=== PATIENT | female | born 1955 | race Caucasian/White ===

== ENCOUNTER 2016-09-28 10:26 | Emergency (ER) | payer BC ==
[2016-09-28 10:40] VITALS: TEMP 98.6
[2016-09-28] MEDS ORDERED: IOPAMIDOL (ISOVUE-300) 100 ML BTL ONE (11:49)
[2016-09-28] MEDS ORDERED: IBUPROFEN 600 MG TAB PO ONE ×2 (12:56→12:57)
--- NOTE | 2016-09-28 13:06 | EDPHY ---
H & P Time Seen by Provider: 09/28/16 11:18 HPI/ROS: CHIEF COMPLAINT: Head injury, bucked off a horse HISTORY OF PRESENT ILLNESS: 61-year-old female presents to the emergency department by private vehicle with her after she was bucked off of her horse earlier this afternoon. She thinks that her horse got spooked and while she was not holding on, she fell off the horse and hit left side of her head and left side of chest and abdomen. She denies difficulty breathing. She does have pain when she tries to take a big deep breath. Denies injury to upper lower extremities. She does have a headache. She was wearing a helmet and apparently did lose consciousness. She was amnestic to the events. She denies neck or back pain. Denies any visual changes. REVIEW OF SYSTEMS: Constitutional: No fever, no chills. Eyes: No double or blurry vision. ENT: No sore throat. Respiratory: No cough, no shortness of breath. Cardiac: No chest pain. Gastrointestinal: No abdominal pain, vomiting or diarrhea. Genitourinary: No dysuria. Musculoskeletal: No neck or back pain. Skin: No rashes. Neurological: headache. Past Medical/Surgical History: Hypothyroidism Social History: Smoking Status: Never smoked Physical Exam: General Appearance: Alert, no distress. Vital signs are stable. 97% on room air. She is mentating normally and answering questions appropriately. No visible signs of trauma to her head. Eyes: Pupils equal and round. Extraocular motions are all intact. ENT: Mouth: Mucous membranes moist. No dental injury or malocclusion. No hemotympanum. Respiratory: No wheezing, rhonchi, or rales, lungs are clear to auscultation. Reproducible pain with palpation to the left anterior lateral aspect of her chest overlying 5th through 7th rib area. No palpable crepitus or other bony abnormality. Cardiovascular: Regular rate and rhythm. Gastrointestinal: Tender to palpate in the left upper quadrant. There is no rebound, guarding or masses noted. Some mild CVA tenderness on the left, none on the right. Neurological: Alert and oriented x 3, cranial nerves II through XII grossly intact Skin: Warm and dry, no rashes. Musculoskeletal: Mild tenderness with palpation along cervical spine. No palpable crepitus or other bony abnormality. Nontender to palpate along the thoracic or lumbar spine. Extremities: Full range of motion and no peripheral edema. Psychiatric: Patient is oriented X 3, there is no agitation. Constitutional: Initial Vital Signs Temperature (C) 37 C 09/28/16 10:35 Heart Rate 61 09/28/16 10:35 Respiratory Rate 97 H 09/28/16 10:35 Blood Pressure 135/87 H 09/28/16 10:35 O2 Sat (%) 20 L 09/28/16 10:35 O2 Delivery Mode Room Air Allergies/Adverse Reactions: nitrofurantoin [From Macrobid] Allergy (Verified 09/28/16 10:35) Home Medications: Medication Instructions Recorded Paxil 09/28/16 Synthroid 09/28/16 Medical Decision Making - Diagnostics Imaging Results: CT imaging of the head and cervical spine were negative for intracranial bleeding or fractures. CT imaging of the chest, abdomen and pelvis reveal left 5th and 6th rib fracture without evidence of pneumothorax. There is an old compression deformity noted of T6 which was compared with previous study from 2007. Abdomen pelvis were negative. No acute injuries. Spleen normal. This was reported to me by Dr. Kim. Imaging: Discussed imaging studies w/ call center manager Radiologist, I viewed and interpreted images myself ED Course/Re-evaluation: 61-year-old female presents after she was bucked off a horse. She complains of diffuse headache. She had positive loss of consciousness and was amnestic to the events. I recommended CT imaging of her head. She also is complaining some mild neck pain. She has had previous neck injury. CT imaging of the neck is pending. Patient has reproducible pain with palpation of the left anterior aspect of her chest as well as left lateral chest wall. She has pain with palpation in her left upper quadrant. I was concerned about possible intra-abdominal injury. CT imaging of the chest and abdomen and pelvis were obtained and are pending. Differential Diagnosis: Head injury including but not limited to concussion, skull fracture, intraparenchymal contusion, subarachnoid, subdural and epidural hematoma. Left side pain including but not limited to rib fracture, pneumothorax, intra- abdominal injury - Data Points Medications Given: Discontinued Medications Ibuprofen (Motrin) 600 mg PO EDNOW ONE Stop: 09/28/16 12:57 Last Admin: 09/28/16 13:03 Dose: 600 mg Departure - Departure Disposition: Home, Routine, Self-Care Clinical Impression: Ribs, multiple fractures Qualifiers: Encounter type: initial encounter Fracture type: closed Laterality: left Qualified Code(s): S22.42XA - Multiple fractures of ribs, left side, initial encounter for closed fracture Head injury Qualifiers: Encounter type: initial encounter Qualified Code(s): S09.90XA - Unspecified injury of head, initial encounter Cervical strain Qualifiers: Encounter type: initial encounter Qualified Code(s): S16.1XXA - Strain of muscle, fascia and tendon at neck level, initial encounter Abdominal contusion Qualifiers: Encounter type: initial encounter Qualified Code(s): S30.1XXA - Contusion of abdominal wall, initial encounter Condition: Good Instructions: Cervical Strain (ED), Rib Fracture (ED), Concussion (ED), Head Injury (ED), Neck Pain (ED) Additional Instructions: Use incentive spirometer. Return to the emergency department if you develop shortness of breath, increasing pain, or if you feel worse in any way. Ibuprofen 600 mg every 8 hours as needed for pain. Referrals: Christine Maza MD [Primary Care Provider] - 2-3 days without fail
[2016-09-28 13:22] VITALS: BP 109/78; PULSE 59; RESP 16; O2SAT 99
== END 2016-09-28 13:20 | disposition home or self-care (01) ==
DX: S22.42XA Multiple fractures of ribs, left side, initial encounter for closed fracture (principal); S16.1XXA Strain of muscle, fascia and tendon at neck level, initial encounter; S30.1XXA Contusion of abdominal wall, initial encounter; S09.90XA Unspecified injury of head, initial encounter; V80.010A Animal-rider injured by fall from or being thrown from horse in noncollision accident, initial encounter
CPT/HCPCS: 82947-QW; Q9967

== ENCOUNTER → 2016-11-18 | Outpatient (CLI) | payer BC | LOC: FIMAGING 09:49 | PROVIDERS: ATTEND Internal Medicine | DX: Z12.31 Encounter for screening mammogram for malignant neoplasm of breast (principal) | CPT/HCPCS: G0202 ==

== ENCOUNTER → 2017-11-19 | Outpatient (CLI) | payer BC | DX: Z12.31 Encounter for screening mammogram for malignant neoplasm of breast (principal); Z80.3 Family history of malignant neoplasm of breast ==

== ENCOUNTER → 2017-12-08 | Outpatient (CLI) | payer BC | LOC: FIMAGING 10:12 | PROVIDERS: ATTEND Internal Medicine | DX: M79.601 Pain in right arm (principal); Z98.890 Other specified postprocedural states ==

== ENCOUNTER → 2018-05-16 | Outpatient (CLI) | payer BC | LOC: BMCIMAGING 08:34 | PROVIDERS: ATTEND Physician Assistant | DX: M19.012 Primary osteoarthritis, left shoulder (principal) ==